=== PATIENT | female | born 1995 | race Caucasian/White ===

== ENCOUNTER 2016-10-29 09:03 | Emergency (ER) | payer BC, OTHER ==
[2016-10-29 09:19] VITALS: BP 135/68
--- NOTE | 2016-10-29 09:29 | UC ---
Complaint Female HPI - HPI Summary HPI Summary: pain buring and urgency with urination began last night, no fevers chills or back pain or night sweets - History Of Current Complaint Chief Complaint: UCGU Stated Complaint: URINARY COMPLAINT Time Seen by Provider: 10/29/16 09:22 Hx Obtained From: Patient Hx Last Menstrual Period: merana ?: No Onset/Duration: Sudden Onset, Lasting Days - 1, Still Present Timing: Constant Severity Initially: Mild Severity Currently: Mild Character: Burning Aggravating Factor(s): Urination Alleviating Factor(s): Meds - Azo Associated Signs And Symptoms: Positive: Negative - Allergies/Home Medications Allergies/Adverse Reactions: Allergies Allergy/AdvReac Type Severity Reaction Status Date / Time No Known Allergies Allergy Verified 04/26/14 10:32 Home Medications: Home Medications Phenazopyridine HCl [Azo Urinary Pain Relief] 190 mg PO DAILY PRN 10/29/16 [ History Confirmed 10/29/16] PMH/Surg Hx/FS Hx/Imm Hx Previously Healthy: Yes Endocrine History Of: Denies: Diabetes, Thyroid Disease Cardiovascular History Of: Denies: Cardiac Disorders, Hypertension Respiratory History Of: Denies: COPD, Asthma GI/ History Of: Denies: Ulcer - Surgical History Surgical History: Yes Surgery Procedure, Year, and Place: T&A - Family History Known Family History: Positive: None Family History: denies cardiovascular issues in family lineage - Social History 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 Lives: With Family Alcohol Use: Occasionally Substance Use Type: None Smoking Status (MU): Never Smoked Tobacco Review of Systems Constitutional: Negative Skin: Negative Eyes: Negative ENT: Negative Respiratory: Negative Cardiovascular: Negative Gastrointestinal: Negative Genitourinary: Dysuria, Hematuria, Frequency, Urgency Motor: Negative Neurovascular: Negative Musculoskeletal: Negative Neurological: Negative Psychological: Negative All Other Systems Reviewed And Are Negative: Yes Physical Exam Triage Information Reviewed: Yes Appearance: Well-Appearing, No Pain Distress, Well-Nourished Vital Signs: Initial Vital Signs Temp 98.8 F 10/29/16 09:14 Pulse 60 10/29/16 09:14 Resp 16 10/29/16 09:14 BP 135/68 10/29/16 09:14 Pulse Ox 100 10/29/16 09:14 Eye Exam: Normal Eyes: Positive: Conjunctiva Clear ENT Exam: Normal ENT: Positive: Normal ENT inspection, Hearing grossly normal. Negative: Nasal congestion, Nasal drainage, Trismus, Muffled/hoarse voice Neck exam: Normal Neck: Positive: Supple, Nontender Respiratory Exam: Normal Respiratory: Positive: Chest non-tender, No respiratory distress, No accessory muscle use Cardiovascular Exam: Normal Cardiovascular: Positive: RRR, Pulses Normal, Brisk Capillary Refill Abdominal Exam: Normal Abdomen Description: Positive: Nontender, No Organomegaly, Soft Bowel Sounds: Positive: Present Musculoskeletal Exam: Normal Musculoskeletal: Positive: Strength Intact, ROM Intact Neurological Exam: Normal Neurological: Positive: Alert Psychological Exam: Normal Skin Exam: Normal Complaint Female Dx - Course Course Of Treatment: Macrobid, Azo, increase fluids, culture urine - Differential Dx/Diagnosis Differential Diagnosis/HQI/PQRI: Renal Colic, Urinary Tract Infection Provider Diagnoses: UTI Discharge - Discharge Plan Condition: Stable Disposition: HOME Prescriptions: Fluconazole 150 MG (NF) [Diflucan 150 mg (NF)] 150 mg PO ONCE PRN #1 tab PRN Reason: vaginal yeast sx Nitrofurantoin Monohyd Macro [Macrobid] 100 mg PO BID #20 cap Patient Education Materials: Urinary Tract Infection in Women (ED) Referrals: [facility] [place] [facility] [Outside] - If Needed No Primary Care Phys,NOPCP [Primary Care Provider] -
== END 2016-10-29 09:35 | disposition home or self-care (01) ==
LOC: UCCORT 09:03
DX: N39.0 Urinary tract infection, site not specified (principal); R31.9 Hematuria, unspecified
CPT/HCPCS: 87077; 87086; 87186; 99212; G0463

== ENCOUNTER 2018-05-31 08:11 | Emergency (ER) | payer BC ==
[2018-05-31 08:28] VITALS: BP 126/68
--- NOTE | 2018-05-31 10:18 | UC ---
Complaint Female HPI - HPI Summary HPI Summary: 23-year-old female presents with several days history of painful lesions in her genital area. She is been sexually active with a new sexual partner in the last few weeks. She denies any discharge and states the lesions are all external in nature. She has had no fever, cough, congestion or body aches. She did have a full [facility] workup with STD testing in the middle of April. - History Of Current Complaint Chief Complaint: UCGU Stated Complaint: PERSONAL Time Seen by Provider: 05/31/18 08:31 Hx Obtained From: Patient Hx Last Menstrual Period: unknown, Mirena Pain Intensity: 2 Pain Scale Used: 0-10 Numeric - Allergies/Home Medications Allergies/Adverse Reactions: Allergies Allergy/AdvReac Type Severity Reaction Status Date / Time No Known Allergies Allergy Verified 05/31/18 08:26 PMH/Surg Hx/FS Hx/Imm Hx Previously Healthy: Yes - Surgical History Surgical History: Yes Surgery Procedure, Year, and Place: T&A - Family History Known Family History: Positive: None Family History: denies cardiovascular issues in family lineage - Social History Alcohol Use: Occasionally Substance Use Type: None Smoking Status (MU): Never Smoked Tobacco Review of Systems Constitutional: Negative Skin: Rash Genitourinary: Vaginal/Penile Tenderness, Ulceration/Lesion, Other - External vaginal area lesions All Other Systems Reviewed And Are Negative: Yes Physical Exam Triage Information Reviewed: Yes Appearance: Well-Appearing, No Pain Distress Vital Signs: Initial Vital Signs Temp 98.4 F 05/31/18 08:22 Pulse 75 05/31/18 08:22 Resp 18 05/31/18 08:22 BP 126/68 05/31/18 08:22 Pulse Ox 100 05/31/18 08:22 Eye Exam: Normal Respiratory: Positive: Chest non-tender, Lungs clear Cardiovascular: Positive: RRR Abdomen Description: Positive: Nontender, Soft Pelvic Exam: Positive: Ulcers. Negative: External Exam Normal, Discharge Musculoskeletal Exam: Normal Skin: Positive: Other - Perineal lesions as indicated above Complaint Female Dx - Course Course Of Treatment: Patient with perineal ulcerations consistent with HSV2. Viral swab taken and the patient placed empirically on Valtrex. Follow up with [facility]. Abstain from intercourse. 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 Avoid sexual intercourse for one week or until well. Take one pill 3 times a day for 7 days. Extra has been prescribed in case you get symptoms in the future. At that time take 500 mg twice a day. Return if worse, new symptoms or other concerns as discussed. This is contagious. - Billing Disposition and Condition Condition: IMPROVED Disposition: Home - Attestation Statements Document Initiated by Jorge: Clemencia
--- NOTE | 2018-06-02 07:16 | UC ---
- Progress Note Progress Note: + HSV2 Please call pt to confirm diagnosis - reinforce completion of Rx Ljj 06/02/18 Discharge - Sign-Out/Discharge Documenting (check all that apply): Post-Discharge Follow Up All imaging exams completed and their final reports reviewed: No Studies - Discharge Plan Condition: Improved Disposition: HOME Prescriptions: ValACYclovir (*) [Valtrex 1 GM(*)] 1 gm PO TID #30 tab Patient Education Materials: Genital Herpes Simplex (ED) Referrals: No Primary Care Phys,NOPCP [Primary Care Provider] - Additional Instructions: Follow-up with [facility] [place]. Avoid sexual intercourse for one week or until well. Take one pill 3 times a day for 7 days. Extra has been prescribed in case you get symptoms in the future. At that time take 500 mg twice a day. Return if worse, new symptoms or other concerns as discussed. This is contagious. - Billing Disposition and Condition Condition: IMPROVED Disposition: Home
== END 2018-05-31 09:00 | disposition home or self-care (01) ==
LOC: UCCORT 08:11
DX: A60.00 Herpesviral infection of urogenital system, unspecified (principal); N90.89 Other specified noninflammatory disorders of vulva and perineum
CPT/HCPCS: 87529; 99212; G0463